=== PATIENT | female | born 2000 | race Caucasian/White ===

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

== ENCOUNTER 2019-10-13 00:54 | Emergency (ER) | payer OTHER ==
[~2019-10-13] VITALS: Ht 170.2 cm; Wt 63.5 kg
[~2019-10-13 00:54] MED LIST changes: +AUGMENTIN 875-1 EACH PO; +IBUPROFEN 600600 M1 PO
[2019-10-13] MEDS ORDERED: KLONOPIN1 MG PO (01:08)
[2019-10-13] MEDS ORDERED: PROTONIX40 M2 PO (01:09)
[2019-10-13] MEDS ORDERED: BUSPIRONE HCL15 MG PO (01:09)
[2019-10-13] MEDS ORDERED: ABILIFY15 MG PO (01:09)
[2019-10-13 01:30] LABS: ABSOLUTE BASOPHILS 0.1 thou/uL (0.0-0.2); ABSOLUTE EOSINOPHILS 0.2 thou/uL (0.0-0.7); ABSOLUTE LYMPHOCYTES 6.4 thou/uL (0.8-5.3); ABSOLUTE MONOCYTES 0.9 thou/uL (0.0-1.2); ABSOLUTE NEUTROPHILS 9.1 thou/uL (1.6-8.1); BASOPHILS 0.5 %; EOSINOPHILS 1.4 %; HEMATOCRIT 35.1 % (37.0-47.0); HEMOGLOBIN 11.7 gm/dL (12.0-15.0); LYMPHOCYTES 38.2 %; MCH 27.3 pg (26.0-34.0); MCHC 33.4 g/dL (28.0-37.0); MCV 81.8 fL (80.0-100.0); MONOCYTES 5.5 %; MPV 7.7 fl. (7.2-11.1); NUCLEATED RBCS 0 /100WBC; PLATELET COUNT* 407 thou/uL (150-400); POLYS 54.4 %; RDW-CV 14.4 % (10.5-14.5); WBC 16.7 thou/uL (4.0-11.0)
[2019-10-13 01:34] LABS: CALCIUM 8.5 mg/dL (8.5-10.1); CREATININE 0.8 mg/dL (0.6-1.3); POTASSIUM 3.1 mmol/L (3.5-5.1)
[2019-10-13 01:39] LABS: ALBUMIN 3.7 g/dL (3.4-5.0); TOTAL BILIRUBIN 0.2 mg/dL (<0.1-1.0); TOTAL PROTEIN 6.7 g/dL (6.4-8.2)
[2019-10-13 02:51] LABS: URINE BILIRUBIN NEGATIVE (Negative); URINE BLOOD 2+ (Negative); URINE CLARITY CLEAR; URINE COLOR YELLOW; URINE GLUCOSE-RANDOM NEGATIVE (Negative); URINE KETONES 1+ (Negative); URINE LEUKOCYTES-REFLEX NEGATIVE (Negative); URINE NITRITE-REFLEX NEGATIVE (Negative); URINE PROTEIN NEGATIVE (Negative); URINE SPECIFIC GRAVITY 1.015 (1.005-1.030); URINE UROBILINOGEN 0.2 E.U./dl (0.2-1.0)
[2019-10-13 03:16] LABS: CASTS None Seen /LPF (None Seen); SQUAMOUS >10 Many /LPF (0-3); URINE WBC-REFLEX 0-5 Rare /HPF (0-5)
[2019-10-13 03:17] LABS: BACTERIA-REFLEX None Seen /HPF (None Seen); CRYSTALS None Seen /LPF (None Seen)
[2019-10-13] MEDS ORDERED: PROMS25 WY RECTAL (04:10)
[2019-10-13] MEDS ORDERED: PHENERGAN 25 MG25 M1 PO (04:10)
[2019-10-13] MEDS ORDERED: HYDROCODON-ACE1 EAC7 PO (04:10)
[2019-10-13] MEDS ORDERED: FLOMAX0.4 MG PO (04:10)
[2019-10-13 04:29] VITALS: BP 133/76
== END 2019-10-13 04:33 | disposition home or self-care (01) ==
LOC: M.ERS 00:54
PROVIDERS: Personal Emergency Response Attendant
DX: N23 Unspecified renal colic (principal); R11.2 Nausea with vomiting, unspecified; F32.9 Major depressive disorder, single episode, unspecified; F41.9 Anxiety disorder, unspecified; Z87.442 Personal history of urinary calculi